=== PATIENT | female | born 1980 | race African-American/Black ===

== ENCOUNTER 2021-07-19 13:58 | Emergency (ER) | payer OTHER, MEDICAID, SELFPAY ==
--- NOTE | ~2021-07-19 | CT_ITS ---
EXAMINATION: CT brain wo con DATE: 07/19/2021 16:56 INDICATION: Headache. TECHNIQUE: Computed tomography (CT) of the head was performed without intravenous contrast. The mA wa s adjusted according to patient size. Iterative reconstruction technique was employed. The dose-lengt h product was 605.33 mGy-cm. COMPARISON: None FINDINGS: There is no intracranial hemorrhage, acute infarction, or abnormal intracranial mass lesion . The ventricles are normal in size. There is mild mucosal thickening in the ethmoid sinuses. The mas toid air cells are normal. The orbits are normal. IMPRESSION: 1. Normal brain. Reviewed, dictated and finalized at location B. IMPRESSION: 1. Normal brain.
--- NOTE | ~2021-07-19 | XR_ITS ---
EXAMINATION: XR chest 2V Exam Date/Time: 07/19/2021 14:20 CDT CLINICAL HISTORY: chest pain Comparison: None available. RESULT: Lines, tubes, and devices: None. Lungs and pleura: Bilateral peripheral linear scar/atelectasis. Ill-defined subsegmental bibasilar o pacities. Cardiomediastinal silhouette: Normal cardiomediastinal silhouette. Other: No acute osseous or upper abdominal finding. IMPRESSION: Bibasilar opacities, commonly attributed to atelectasis, infection not excluded. Otherwise no acute c ardiopulmonary process. Reviewed, dictated and finalized at location K. IMPRESSION: Bibasilar opacities, commonly attributed to atelectasis, infection not excluded . Otherwise no acute cardiopulmonary process.
[2021-07-19 14:07] VITALS: BP 192/113; PULSE 82; RESP 20; TEMP 36.7; O2SAT 100
--- NOTE | 2021-07-19 14:15 | ECG_ITS ---
Measurements Intervals [place] Rate: 64 P: 21 NM: 174 QRS: -7 QRSD: 91 T: 8 QT: 417 QTc: 432 Interpretive Statements SINUS RHYTHM BORDERLINE R WAVE PROGRESSION, ANTERIOR LEADS CONSIDER INFERIOR INFARCT, AGE INDETERMINATE BASELINE ARTIFACT- I, II, AVR, AVL, AVF ABNORMAL ECG Electronically Signed On 07-19-2021 15:48:59 CDT by Alex Donahue D.O.
[2021-07-19 14:44] LABS: Basophils Absolute Auto 0.1 K/mm3 (0.0-0.1); Basophils Percent Auto 0.9 % (0.2-1.2); Eosinophils Absolute Auto 0.1 K/mm3 (0-0.3); Hematocrit 43.8 % (37.0-47.0); Hemoglobin 14.3 g/dL (12.0-15.0); Immature Granulocyte Absolute 0.01 K/mm3 (0.00-0.031); Immature Granulocyte Percent A 0.2 % (0-0.5); Lymphocytes Absolute Auto 2.25 K/mm3 (0.9-3.2); Lymphocytes Percent Auto 40.8 % (18.3-44.2); Mean Corpuscular HGB Conc 32.6 g/dl (32-36); Mean Corpuscular Hemoglobin 27.4 pg (26-34); Mean Corpuscular Volume 84.1 fl (80-100); Mean Platelet Volume 10.4 fl (7.4-10.4); Monocytes Absolute Auto 0.5 K/mm3 (0.1-0.6); Monocytes Percent Auto 9.6 % (2.6-8.5); Neutrophils Absolute Auto 2.6 K/mm3 (1.3-6.7); Neutrophils Percent Auto 46.5 % (45.5-73.1); Platelet Count Result 272 k/mm3 (150-375); Red Blood Count 5.21 M/mm3 (4.2-5.4); Red Cell Distribution Width 13.2 % (11.5-14.5); White Blood Count 5.5 K/mm3 (4.5-10.0)
[2021-07-19 14:46] LABS: Appearance Urine Clear (Clear); Bilirubin Urine Negative (Negative); Blood Urine Trace-lysed (Negative); Color Urine Yellow (Yellow); Glucose Urine UA Negative (Negative); Ketones Urine Negative (Negative); Leukocyte Esterase Ur Trace LEU/UL (Negative); Nitrate Urine Negative (Negative); Protein Urine Negative (Negative); Specific Grav Ur 1.015 (1.001-1.035); Urobilinogen Urine 0.2 mg/dL (<2.0)
[2021-07-19 14:54] LABS: Alanine Aminotransferase 18 U/L (6-35); Albumin Level 4.8 g/dL (3.5-5.1); Alkaline Phosphatase 81 U/L (38-126); Anion Gap 9 mmol/L (8-16); Aspartate Amino Transferase 29 U/L (14-36); Bilirubin,Total 1.3 mg/dL (0.2-1.3); Blood Urea Nitrogen 7 mg/dL (7-17); Calcium 9.5 mg/dL (8.4-10.2); Carbon Dioxide 28 mmol/L (22-30); Chloride 101 mmol/L (98-107); Estimated Glomerular Filt Rate > 60; Glucose 86 mg/dL (65-110); Lipase 52 U/L (23-300); Potassium 3.9 mmol/L (3.4-5.0); Sodium 138 mmol/L (137-145)
[2021-07-19 14:58] LABS: Partial Thromboplastin Time 33.6 SECONDS (22.3-36.8); Prothrombin Time 12.9 Seconds (11.1-14.7); RBC Urine 0-2 /hpf (0-2); Squamous Epithelial Cell Urine Few /hpf (Few); WBC Urine 0-3 /hpf
[2021-07-19 15:00] LABS: Add Urine Microscopic? YES
[2021-07-19 15:05] LABS: Troponin I < 0.012 ng/mL (0.000-0.034)
--- NOTE | 2021-07-19 16:35 | ED.HA ---
HPI - Headache General Chief Complaint: Recheck/Abnormal Lab/Rx Stated Complaint: headahe/htn Time Seen by Provider: 07/19/21 15:42 Source: patient Mode of arrival: ambulatory Limitations: no limitations History of Present Illness HPI Narrative: 40 y/o female presents to the ER today for complaints of headache and elevated blood pressure. She is tearfull. She reports that the headache is frontal and feels like squeezing. She reports photophobia. No n/v/d. She has checked blood pressure several times over past few days and it has been very elevated. She started amlodipine as prescribed by her PCP. She has taken this yesterday and today. No extremity weakness or numbness. She says that his headache feels different and worse than other headaches. She is not on any prescribed medications other than the newly prescribed meds for HTN. She has been taking PRN ibuprofen for back pain and now for headache. Related Data Allergies Allergy/AdvReac Type Severity Reaction Status Date / Time No Known Allergies Allergy Verified 07/19/21 17:05 Review of Systems Constitutional: Constitutional: Denies chills, Denies fever(s) and Denies weakness Eyes: Eyes: Reports no additional eye complaints ENT: Denies nasal congestion and Denies sore throat Cardiovascular: Cardiovascular: Denies chest pain and Denies radiating jaw, neck or arm pain Respiratory: Respiratory: Reports no additional respiratory complaints, Denies chest congestion, Denies cough, Denies dyspnea and Denies wheezing Gastrointestinal: Gastrointestinal: Denies abdominal pain, Denies diarrhea, Denies nausea and Denies vomiting Genitourinary: Genitourinary: Denies hematuria Musculoskeletal: Musculoskeletal: Denies back pain and Denies joint swelling Integumentary/Breasts: Skin/Breast: Denies erythema and Denies rash Neurologic: Denies vertigo, Denies dizziness, Denies syncope, Reports headache(s), Denies focal weakness and Denies numbness Psychiatric: Psychiatric: Reports no additional psychiatric complaints Endocrine: Endocrine: Reports no additional endocrine complaints Hematologic/Lymphatic: Hematologic/Lymphatic: Reports no additional hematologic/lymphatic complaints Allergic/Immunologic: Allergic/Immunologic: Reports no additional allergic/immunologic complaints Exam Const: General: no acute distress Orientation/consciousness: patient oriented x3 HENMT: Head: normal to inspection Eyes: Conjunctivae: conjunctivae normal Pupils: Equal, round and reactive pupils present Neck: Neck: normal visual inspection Chest: Chest palpation & inspection: normal inspection of the chest Resp: Effort & Inspection: normal respiratory effort Auscultation: clear to auscultation bilaterally Cardio: Rate: regular rate Rhythm: regular rhythm GI: GI Palp: Yes Soft to palpation, No Tenderness to palpation present (GI) and No Guarding due to palpation present (GI) Auscultation: normal bowel sounds : General: Yes no CVA tenderness Skin: General skin exam: normal color Rashes: no rashes Neuro: General: patient oriented x3, moves all extremities, no meningeal signs and no focal motor deficits Extrem: General: normal to inspection Psych: Mental Status: mental status grossly normal Affect: normal affect Attitude: cooperative Course Reevaluation(s) Reevaluation #1: Pt reports headache improved, blood pressure also improved. Date: 07/19/21 Time: 18:00 Vital Signs Vital signs: Vital Signs Temperature 36.7 C 07/19/21 14:07 Pulse Rate 82 07/19/21 14:07 Respiratory Rate 20 07/19/21 14:07 Blood Pressure 192/113 H 07/19/21 14:07 Pulse Oximetry 100 07/19/21 14:07 Temperature 36.7 C 07/19/21 14:07 Pulse Rate 69 07/19/21 17:13 Respiratory Rate 18 07/19/21 17:13 Blood Pressure 158/79 H 07/19/21 17:13 Pulse Oximetry 100 07/19/21 17:13 MDM - Headache Differential Diagnosis Differential diagnosis: Likely migraine, tension headache, subarachno
[2021-07-19] MEDS: METOCLOPRAMIDE HCL INJ 10 MG/2 ML VIAL IV PUSH (17:06)
[2021-07-19] MEDS: LABETALOL HCL INJ 100 MG/20 ML VIAL 10 MG IV PUSH (17:06)
[2021-07-19] MEDS: diphenhydrAMINE HCl INJ 50 MG/ML VIAL IV PUSH (17:06)
[2021-07-19] MEDS: ASPIRIN 81 MG CHEWABLE TABLET 324 MG PO (17:06)
[2021-07-19] MEDS: SODIUM CHLORIDE 0.9% IV 1,000 ML 999 ML IV CONT (17:07)
[2021-07-19 17:13] VITALS: BP 158/79; PULSE 69; RESP 18; O2SAT 100
[2021-07-19 17:43] LABS: Troponin I < 0.012 ng/mL (0.000-0.034)
[2021-07-19 19:05] VITALS: BP 145/75; PULSE 60; RESP 16; O2SAT 99
== END 2021-07-19 19:05 | disposition home or self-care (01) ==
PROVIDERS: Emergency Medicine; Emergency Provider Nurse Practitioner Family; PCP Family Medicine Sports Medicine
DX: I10 Essential (primary) hypertension (principal); J01.20 Acute ethmoidal sinusitis, unspecified; R51.9 Headache, unspecified; Z79.1 Long term (current) use of non-steroidal anti-inflammatories (NSAID); Z79.899 Other long term (current) drug therapy
CPT/HCPCS: 36415; 70450; 71046; 80053; 81001; 83690; 84484; 85025; 85610; 85730; 93005; 96361; 96374; 96375; 99284; A9270; J1200; J2765; J7030

== ENCOUNTER 2023-10-10 08:11 | Outpatient (CLI) | payer OTHER, SELFPAY ==
--- NOTE | ~2023-10-10 | CT_ITS ---
EXAMINATION: CT sinus wo con DATE: 10/10/2023 08:27 INDICATION: Chronic sinusitis. TECHNIQUE: Computed tomography (CT) of the paranasal sinuses was performed without intravenous contra st. Iterative reconstruction technique was employed. The dose-length product was 300.36 mGy-cm. COMPARISON: Head CT 07/19/2021 FINDINGS: The frontal sinuses are hypoplastic. The ethmoid, sphenoid, and maxillary sinuses are clear . There is mild leftward deviation of the nasal septum with a left lateral spur. There is dominique bull lauren involving the bilateral middle turbinates. The ostiomeatal units are patent. There is a small rig ht mastoid effusion. IMPRESSION: 1. Mild leftward deviation of the nasal septum with a left lateral spur. 2. Dominique bullosa involving the bilateral middle turbinates. Reviewed, dictated and finalized at location A.
== END 2023-10-10 08:12 ==
LOC: MICIMG 08:11
PROVIDERS: PCP Family Medicine Sports Medicine; Visit Provider Otolaryngology
DX: J32.9 Chronic sinusitis, unspecified (principal); J34.2 Deviated nasal septum
CPT/HCPCS: 70486

== ENCOUNTER 2024-12-24 09:26 | Outpatient (CLI) | payer OTHER, SELFPAY ==
--- NOTE | ~2024-12-24 | MM_ITS ---
EXAMINATION: MM screening kirk BI w isidro HISTORY: Screening TECHNIQUE: Craniocaudal and mediolateral oblique 3-D tomosynthesis images were obtained and synthetic 2-D images were generated. CAD analysis was submitted and interpreted. COMPARISON: No prior mammogram is available for comparison at this institution. BREAST PARENCHYMAL COMPOSITION: Not dense: There are scattered areas of fibroglandular density. FINDINGS: There is a mass in the upper outer quadrant of the right breast, middle third, partially obscured by fibroglandular tissue. There is no mammographic evidence for malignancy in the left breast. IMPRESSION: 1. Right breast mass upper outer quadrant, middle third. 2. Additional mammographic views and possible breast ultrasound are recommended. BI-RADS Category 0: Incomplete: Needs additional imaging evaluation. Reviewed, dictated and finalized at location O. IMPRESSION: 1. Right breast mass upper outer quadrant, middle third. 2. Additional mammographic views and possible breast ultrasound are recommended . BI-RADS Category 0: Incomplete: Needs additional imaging evaluation.
--- OUTSIDE RECORDS SUMMARY | 2024-12-24 10:39 | XMS_ITS | Clinical Summary ---
Author Organization [facility] Address [address] [place] [id number] Care Team Providers Care Dragline Operator Name Role Phone Unavailable Primary Care Provider Unavailabl e Immunizations Immunization Administration Dates Next Due Covid-19, Mrna, Lnp-s, Pf, 30 Mcg/0.3 Ml Dose (P fizer) 11/25/2020 Social History Tobacco Use Types Packs/Day Years Used Date Smoking Tobacco: Never Assessed Comments Unknown Sex and Gender Information Value Date Recorded Sex Assigned at Not on file Legal Sex Female 9:07 AM [employer]AD Gender Identity Not on file Sexual Orientation Not on file Plan of Treatment Health Maintenance Due Date Last Done Comments Hepatitis C Virus (HCV) Screening 1979 TdaP Immunization 1979 Hepatitis B Immunization (1 of 3 - 19+ 3-dose series) 10/23/1998 Pap Smear 10/23/2000 Human Papillomavirus (HPV) Immunization (1 - 3-dose SCDM series) 10/23/2006 Cervical Cancer Screening (CCS) 10/23/2009 HPV/Cotest 10/23/2009 Cologuard 10/23/2024 Colonoscopy 10/23/2024 Colorectal Cancer Screening 10/23/2024 Immunochemical Fecal Occult Blood 10/23/2024 Influenza Immunization (#1) 2024 SARS-COV-2 Immunization (2024- season) 2024 11/25/2020 Respiratory Syncytial Virus (RSV) Immunization (Adult) (1 - 1-dose 75+ series) 10/23/2054 Meningococcal Immunization (ACWY) Aged Out No longer eligible based on patient's age to complete this topic Pneumococcal Immunization Combined Aged Out No longer eligible based on patient's age to complete this topic Rotavirus Immunization Aged Out No lo nger eligible based on patient's age to complete this topic
--- OUTSIDE RECORDS SUMMARY | 2024-12-24 10:39 | XMS_ITS | Clinical Summary ---
Author Organization [facility] Address [address] [place] [address] Care Team Providers Care Addiction Social Worker Name Role Phone Unavailable Primary Care Provider Unavailabl e Source Comments [facility],non-owned Affiliates and Associated Physician Practices is amultiple site organization consisting of ambulatory clinics and hospital sitesin [place], [place], [place] and [place]. This disclosure is being madepursuant to the Care Everywhere program and may not contain all information available regarding this patient. Last updated 17.[facility] Allergies No known active allergies Medications * Be aware that medications may not be up to date on this document. Alwaysverify current medications with the patient. OtherIndications: Oral contraceptive pill Reasons: Oral contraceptive pill Active Albuterol Sulfate 108 (90 BASE) MCG/ACT Active fluticasone propionate (FLONASE) 50 MCG/ACT nasal sprayIndications: Acute serous otitis media of left ear, recurrence not specified,Dysfunc tion of left eustachian tube [employer] 2 sprays into each nostril once daily 1 bottles 08/08/19 18 Active cetirizine (ZYRTEC) 10 MG chew tabletIndications :Acute serous otitis media of left ear, recurrence not specified,Dysfunc tion of left eustachian tube Take 1 tablet by mouth once daily 30 tablet 08/08/19 18 Active Budesonide-Formot kenyetta Fumarate (SYMBICORT IN) Activ e clopidogrel (plaVIX) 75 MG tablet Take 1 (one) tablet by mouth once daily 21 tablet 02/04/20 24 Active Active Problems Problem Noted Date Diagnosed Date Cerebral infarction 09/07/2014 Overview (06/04/2017): S/P IV tPA Family History Medical History Relation Name Comments Sickle Cell Anemia Brother Liver Disease Father Status: Deceas ed Relation Name Status Comments Brother Father Social History Tobacco Use Types Packs/Day Years Used Date Smoking Tobacco: Former Cigarettes Smokeless Tobacco: Never Alcohol Use Standard Drinks/Week Comments No 0 (1 standard drink = 0.6 oz pur e alcohol) Comments No Sex and Gender Information Value Date Recorded Sex Assigned at Female 09/17/2020 9:52 AM CDT Legal Sex Female 1:10 PM CDT Gender Identity Female 09/17/2020 9:52 AM CDT Sexual Orientation Straight 09/17/2020 9: 52 AM CDT Last Filed Vital Signs Vital Sign Reading Time Taken Comments Blood Pressure 142/81 02/03/2024 10:40 PM CAREER SERVICES MANAGER Pulse 58 02/03/2024 10:40 PM CAREER SERVICES MANAGER Temperature 36.8 C (98.2 F) 02/03/2024 10:21 PM CAREER SERVICES MANAGER Respiratory Rate 24 02/03/2024 10:40 PM CAREER SERVICES MANAGER Oxygen Saturation 99% 02/03/2024 10:40 PM CAREER SERVICES MANAGER Inhaled Oxygen Concentration - - Weight 116.1 kg (256 lb) 02/03/2024 10:21 PM CAREER SERVICES MANAGER Height 162.6 cm (5' 4) 02/03/2024 10:21 PM CAREER SERVICES MANAGER Body Mass Index 43.94 02/03/2024 10:21 PM CAREER SERVICES MANAGER Plan of Treatment Health Maintenance Due Date Last Done Comments COLOGUARD (AGES 45-75) - COLON CA SCREENING 1979 COLON MONITORING 1979 COLONOSCOPY - COLON CA SCREENING 1979 CT COLONOGRAPHY - COLON CA SCREENING 1979 Colorectal Cancer Screening 1979 FIT - COLON CA SCREENING 1979 FLEX SIG - COLON CA SCREENING 1979 HIV SCREENING 10/23/1994 HEPATITIS C SCREENING 10/19/1997 DTAP/TDAP/TD VACCINES (1 - Tdap) 10/23/1998 HEPATITIS B VACCINE (1 of 3 - 19+ 3-dose series) 10/23/1998 PAP SMEAR 10/23/2000 HPV VACCINE (1 - 3-dose SCDM series) 10/23/2006 MAMMOGRAM 02/15/2022 02/16/2020, 02/16/2020 DEPRESSION SCREENING 03/05/2024 COVID-19 VACCINE ( season) 2024 11/25/2020, 11/04/2020 INFLUENZA VACCINE (#1) 2024 SCREENING FOR DIABETES 02/03/2027 , 02/03/2024, 11/13/2015, Additional history exists LIPID TESTING 11/19/2027 11/18/2022, 09/05/2014 ZOSTER VACCINE (1 of 2) 10/23/2029 HIB VACCINE Aged Out No longer eligi ble based on patient's age to complete this topic MENINGOCOCCAL (Group B) VACCINE SHARED DECISION-MAKING Aged Out No longer eligible based on patient's age to complete this topic MENINGOCOCCAL GROUPS A/C/Y/W VACCINE Aged Out No longer eligible based on patient's age to complete this topic PNEUMOCOCCAL VACCINE Aged Out No long er eligible based on patient's age to complete this topic Procedures Procedure Name Priority Date/Time Associated Diagnosis Comments COMPREHENSIVE METABOLIC PANEL STAT 02/04/2024 12:39 AM CAREER SERVICES MANAGER LIPID PROFILE Routine 09/05/2014 6:44 AM CDT from Last 3 Months or Most Recently Relevant to Health Maintenance Results * (ABNORMAL) COMPREHENSIVE METABOLIC PANEL (02/04/2024 12:39 AM CAREER SERVICES MANAGER) BUN 8 7 - 26 mg/dL 02/04/2024 1:14 AM [facility] Creatinine 0.82 0.56 - 0.96 mg/dL 02/04/2024 1:14 AM [facility] Sodium 139 136 - 145 mmol/L 02/04/2024 1:14 AM [facility] Potassium 3.4(L) 3.5 - 4.5 mmol/L 02/04/2024 1:14 AM [facility] Chloride 105 98 - 107 mmol/L 02/04/2024 1:14 AM [facility] CO2 24 22 - 29 mmol/L 02/04/2024 1:14 AM [facility] Glucose 82 70 - 99 mg/dL 02/04/2024 1:14 AM [facility] Calcium 8.9 8.4 - 10.2 mg/dL 02/04/2024 1:14 AM [facility] Protein Total 6.7 6.0 - 8.3 g/dL 02/04/2024 1:14 AM [facility] Albumin 3.5 3.4 - 5.0 g/dL 02/04/2024 1:14 AM [facility] Bilirubin Total 0.7 0.2 - 1.2 mg/dL 02/04/2024 1:14 AM [facility] Alkaline Phosphatase 77 40 - 150 U/L 02/04/2024 1:14 AM [facility] ALT 18 5 - 55 U/L 02/04/2024 1:14 AM [facility] AST 20 5 - 34 U/L 02/04/2024 1:14 AM [facility] Anion Gap 10 6 - 16 02/04/2024 1:14 AM [facility] BUN/Creatinine Ratio 10 7 - 23 02/04/2024 1:14 AM [facility] Osmolality Calculated 285 275 - 295 mOsm/kg 02/04/2024 1:14 AM [facility] Albumin/Globulin Ratio 1.1 1.1 - 2.3 02/04/2024 1:14 AM [facility] eGFR by CKD-EPI 90 >=90 mL/min/1.7 3 m2 02/04/2024 1:14 AM [facility] Blood BLOOD SPECIMEN / Unknown Venipuncture / Unknown 02/04/2024 12:39 AM CAREER SERVICES MANAGER 02/04/2024 12:42 AM [facility] Osmani Talbert MD LAB - CHEMISTRY ORDERA BLES Final Result [facility] [address] [place] [address], [facility] [phone] * (ABNORMAL) LIPID PROFILE (09/05/2014 6:44 AM CDT) Cholesterol Total 123 <200 mg/dL [facility] HDL 33(L) >40 mg/dL [facility] Comment: ATP III Classification of HDL Cholesterol: <40 mg/dL: Considered a major risk factor. >60 mg/dL: Considered a negative risk factor. LDL Calculated 69 <100 mg/dL [facility] Comment: ATP III Classification of LDL Cholesterol: <100 mg/dL: Optimal 100 - 129 mg/dL: Near Optimal/Above Optimal 130 - 159 mg/dL: Borderline High 160 - 189 mg/dL: High >190 mg/dL: Very High Triglycerides 105 <150 mg/dL [facility] Comment: ATP III Classification of Triglycerides: <150 mg/dL: Normal 150 - 199 mg/dL: Borderline High 200 - 400 mg/dL: High >500 mg/dL: Very High Blood specimen (specimen) BLOOD SPECIMEN / Unknown 09/05/2014 6:44 AM CDT 09/05/2014 6:57 AM CDT us Kishore Guy MD LAB - CHEMISTRY ORDERABLES Final Result [address] [phone] from Last 3 Months or Most Recently Relevant to Health Maintenance Insurance [facility]
== END 2024-12-24 09:27 | disposition home or self-care (01) ==
LOC: ANHFOHIMG 09:30
PROVIDERS: PCP Nurse Practitioner; Visit Provider Nurse Practitioner
DX: Z12.31 Encounter for screening mammogram for malignant neoplasm of breast (principal)
CPT/HCPCS: 77063; 77067